=== PATIENT | male | born 1940 | race Caucasian/White ===

== ENCOUNTER → 2018-02-03 | Outpatient (CLI) | payer OTHER | LOC: FIMAGING 09:11 | PROVIDERS: ATTEND Physician Assistant | DX: M48.56XA Collapsed vertebra, not elsewhere classified, lumbar region, initial encounter for fracture (principal); Z12.89 Encounter for screening for malignant neoplasm of other sites | CPT/HCPCS: 78306; A9503 ==

== ENCOUNTER → 2018-02-11 | Outpatient (CLI) | payer OTHER | LOC: BMCIMAGING 15:45 | PROVIDERS: ATTEND Physical Medicine & Rehabilitation | DX: Z13.820 Encounter for screening for osteoporosis (principal); M85.89 Other specified disorders of bone density and structure, multiple sites; Z87.311 Personal history of (healed) other pathological fracture ==

== ENCOUNTER → 2018-08-17 | Outpatient (CLI) | payer OTHER | LOC: BMCIMAGING 07:27 | PROVIDERS: ATTEND Urology | DX: N40.1 Benign prostatic hyperplasia with lower urinary tract symptoms (principal) ==